=== PATIENT | male | born 2000 ===

== ENCOUNTER → 2023-11-22 15:36 | Outpatient (REF) | payer OTHER, SELFPAY | LOC: MRI 3T 15:36 | PROVIDERS: ATTENDING PHYSICIAN Nurse Practitioner Adult Health; FAMILY PHYSICIAN Internal Medicine | DX: R22.0 Localized swelling, mass and lump, head (principal) | CPT/HCPCS: 70553; A9575 ==

== ENCOUNTER → 2024-04-12 12:47 | Outpatient (REF) | payer OTHER, SELFPAY | LOC: RCS 12:47 | PROVIDERS: ATTENDING PHYSICIAN Internal Medicine Cardiovascular Disease; FAMILY PHYSICIAN Internal Medicine | DX: Z09 Encounter for follow-up examination after completed treatment for conditions other than malignant neoplasm (principal); Z51.81 Encounter for therapeutic drug level monitoring | CPT/HCPCS: 93306 ==

== ENCOUNTER → 2024-06-18 16:26 | Outpatient (REF) | payer OTHER, SELFPAY | LOC: MRI 3T 16:26 | PROVIDERS: ATTENDING PHYSICIAN Neurological Surgery; FAMILY PHYSICIAN Internal Medicine | DX: M89.9 Disorder of bone, unspecified (principal) | CPT/HCPCS: 70553; A9575 ==